=== PATIENT | female | born 1935 | race Hispanic/Latino ===

== ENCOUNTER 2016-06-25 13:43 | Outpatient (CLI) | payer MEDICARE ==
[2016-06-25] MEDS ORDERED: XYLOCAINE TOPICAL 4% TP ONE ×2 (14:38→14:54)
[2016-06-25] MEDS ORDERED: NACL 0.9% 500 ML IR ONE (16:13)
== END 2016-06-25 13:44 | disposition home or self-care (01) ==
LOC: WOUND 13:43
PROVIDERS: ATTEND Podiatrist
DX: L97.822 Non-pressure chronic ulcer of other part of left lower leg with fat layer exposed (principal); K21.9 Gastro-esophageal reflux disease without esophagitis; I10 Essential (primary) hypertension; Z86.73 Personal history of transient ischemic attack (TIA), and cerebral infarction without residual deficits; Z72.89 Other problems related to lifestyle
CPT/HCPCS: 11042; G0463

== ENCOUNTER 2016-07-02 12:58 | Outpatient (CLI) | payer MEDICARE ==
[2016-07-02] MEDS ORDERED: XYLOCAINE TOPICAL 2% TP ONE ×2 (13:03→17:02)
== END 2016-07-02 12:59 | disposition home or self-care (01) ==
LOC: WOUND 12:58
PROVIDERS: ATTEND Podiatrist
DX: L97.822 Non-pressure chronic ulcer of other part of left lower leg with fat layer exposed (principal); K21.9 Gastro-esophageal reflux disease without esophagitis; I10 Essential (primary) hypertension; Z86.73 Personal history of transient ischemic attack (TIA), and cerebral infarction without residual deficits; Z72.89 Other problems related to lifestyle

== ENCOUNTER 2016-07-09 07:53 | Outpatient (CLI) | payer MEDICARE | END 2016-07-09 07:54 | disposition home or self-care (01) | LOC: WOUND 07:53 | PROVIDERS: ATTEND Podiatrist | DX: L97.822 Non-pressure chronic ulcer of other part of left lower leg with fat layer exposed (principal); K21.9 Gastro-esophageal reflux disease without esophagitis; I10 Essential (primary) hypertension; Z86.73 Personal history of transient ischemic attack (TIA), and cerebral infarction without residual deficits; Z72.89 Other problems related to lifestyle | CPT/HCPCS: 99213; G0463 ==

== ENCOUNTER 2016-10-20 13:05 | Outpatient (CLI) | payer MEDICARE ==
--- NOTE | 2016-10-20 13:57 | Mammography Report ---
BILATERAL DIGITAL DIAGNOSTIC MAMMOGRAM with CAD and RIGHT BREAST ULTRASOUND: 10/20/16 CLINICAL: A right breast lump felt by her doctor. She does not feel a lump. COMPARISON:None available. FINDINGS: The breasts are almost entirely fatty.No mass, architectural distortion or suspicious calcifications . No mammographic abnormality at a right palpable marker at 6 o'clock. Bilateral benign vascular calcifications. Ultrasound of the right breast performed from 5 o'clock to 7 o'clock and demonstrated normal fibroglandular and fatty structures. No mass, cyst or shadowing. IMPRESSION: Negative mammogram and negative right breast ultrasound in the area where a lump was described. BI-RADS CATEGORY: 2 -- Benign RECOMMENDATION: Clinical follow-up of the palpable area and routine mammographic screening in one year. ACR BI-RADS MAMMOGRAPHIC CODES: 0 = Needs additional imaging evaluation; 1 = Negative; 2 = Benign; 3 = Probably benign; 4 = Suspicious; 5 = Malignant; 6 = Known biopsy-proven malignancy COMMENT: 1. Dense breast tissue, i.e., adenosis, fibrocystic changes, etc., may obscure an underlying neoplasm. 2. Approximately 10% of cancers are not detected with mammography. 3. A negative mammography report should not delay biopsy if a clinically suspicious mass is present. COMMENT: Patient follow-up letters are generated by our [employer] application.
== END 2016-10-20 13:06 | disposition home or self-care (01) ==
LOC: SPVWC 13:05
PROVIDERS: ATTEND Family Medicine
DX: N63 Unspecified lump in breast (principal); R92.1 Mammographic calcification found on diagnostic imaging of breast
CPT/HCPCS: 76642; G0204; 77066

== ENCOUNTER 2017-06-14 16:17 | Inpatient (IN) | payer MEDICARE ==
[2017-06-14 16:57] LABS: Basophils % (Auto) 0.3 % (0.0-1.8); Eosinophils % (Auto) 0.2 % (0.0-4.3); Hematocrit 40.2 % (30.3-42.9); Hemoglobin 13.6 gm/dl (10.1-14.3); Lymphocytes # (Auto) 0.5 K/mm3 (1.2-5.4); Lymphocytes % (Auto) 4.8 % (13.4-35.0); Mean Corpuscular HGB Conc 34 % (30-34); Mean Corpuscular Hemoglobin 30 pg (28-32); Mean Corpuscular Volume 88 fl (79-97); Monocytes # (Auto) 1.3 K/mm3 (0.0-0.8); Monocytes % (Auto) 11.8 % (0.0-7.3); Platelet Count 159 K/mm3 (140-440); Red Blood Count 4.59 M/mm3 (3.65-5.03)
[2017-06-14 17:07] LABS: Calcium 8.4 mg/dL (8.4-10.2)
[2017-06-14] MEDS ORDERED: NACL 0.9% 1000 ML 1,000 ML ONE (17:27)
[2017-06-14] MEDS ORDERED: NACL 0.9% 1000 ML 1,000 ML IV ONE ×2 (17:31→18:16)
[2017-06-14] MEDS ORDERED: GUAIFENESIN DM SYRUP PO ONE (18:19)
[2017-06-14 18:45] LABS: Bilirubin,Direct 0.6 mg/dL (0-0.2)
[2017-06-14 19:43] LABS: Bacteria,Urine 3+ /HPF (Negative); Bilirubin,Urine NEG (Negative); Blood,Urine MOD (Negative); Color,Urine Yellow (Yellow); Mucus,Urine FEW /HPF; Urobilinogen,Urine < 2.0 mg/dL (<2.0)
--- NOTE | 2017-06-14 20:21 | XRay Report ---
FINAL REPORT PROCEDURE: XR RIBS UNI W PA CHEST 3+V RT TECHNIQUE: RIGHT rib radiographs, 3 views of the ribs, including PA chest. HISTORY: rt lateral low rib pain at midaxillary line COMPARISON: No prior studies are available for comparison. FINDINGS: Heart: Normal. Mediastinum/Vessels: Normal. Lungs: There is diffuse prominence of interstitial markings. No confluent infiltrates or mass lesions are identified. Pleural space: Normal. Pneumothorax: None. Bony thorax/ribs: Ribs are intact without evidence of an acute fracture. Bones are osteopenic. IMPRESSION: No acute bony abnormality. Prominent interstitial markings most likely represent interstitial fibrosis versus interstitial edema.
--- NOTE | 2017-06-14 20:23 | XRay Report ---
FINAL REPORT PROCEDURE: XR FEMUR 2+V LT TECHNIQUE: LEFT femur radiographs, AP and lateral views. HISTORY: anterior mid quad pain COMPARISON: No prior studies are available for comparison. FINDINGS: Fracture (s) and/or Dislocation(s): None . Joint space(s): Knee prosthesis is identified with satisfactory alignment.. Soft tissues: Normal . Bone mineralization: Normal . Foreign bodies: None . IMPRESSION: No acute abnormality
[2017-06-14] MEDS ORDERED: LEVAQUIN 500MG/100ML 500 MG/100 ML BAG IV ONE (21:07)
[2017-06-14] MEDS ORDERED: BABY ASPIRIN PO ONE (21:09)
--- NOTE | 2017-06-14 21:09 | Emergency Department Report ---
HPI - General Chief Complaint: Syncope Time Seen by Provider: 06/14/17 17:22 - HPI HPI: The patient is a 82-year-old female who presents for evaluation of generalized weakness and shortness of breath. The patient reports 1 month of progressive generalized weakness and shortness of breath, dyspnea severe, exacerbated with walking or exertion, and approved with rest. She also reports a chronic cough and soreness of throat. The patient denies trauma to the chest, fever, chest pain, syncope, hemoptysis, unilateral leg swelling, recent immobilization, history of DVT or PE, hx of recent cancer. ED Past Medical Hx - Past Medical History Previous Medical History?: Yes Hx Hypertension: Yes Hx CVA: Yes (TIA) Additional medical history: high cholesterol. GERD - Surgical History Past Surgical History?: Yes Additional Surgical History: Left knee replacement - Social History Smoking Status: Never Smoker Substance Use Type: None ED Review of Systems ROS: Stated complaint: LBP Other details as noted in HPI Constitutional: denies: fever ENT: reports throat or neck pain Respiratory: reports cough, shortness of breath Cardiovascular: denies: chest pain Endocrine: denies unexplained weight loss or gain Gastrointestinal: denies: abdominal pain, nausea Genitourinary: denies: dysuria Musculoskeletal: denies: leg swelling Skin: denies: rash Neurological: denies: headache Hematological/Lymphatic: denies: easy bleeding or easy bruising Psych: denies sadness or hopelessness Physical Exam - Physical Exam Vital Signs: Vital Signs 06/14/17 06/14/17 06/14/17 16:23 16:25 16:30 Temperature 97.5 F L Pulse Rate 69 70 66 Respiratory 24 20 29 H Rate Blood Pressure 108/61 102/62 Blood Pressure [Right] O2 Sat by Pulse 100 98 Oximetry 06/14/17 06/14/17 06/14/17 17:00 17:02 17:30 Temperature 97.5 F L Pulse Rate 72 67 71 Respiratory 17 24 21 Rate Blood Pressure 102/62 77/59 Blood Pressure 102/62 [Right] O2 Sat by Pulse 95 96 99 Oximetry 06/14/17 06/14/17 18:00 18:30 Temperature Pulse Rate 74 72 Respiratory 19 18 Rate Blood Pressure 138/77 125/60 Blood Pressure [Right] O2 Sat by Pulse 98 97 Oximetry Physical Exam: General: well-nourished, well-developed, no acute distress Head: Normocephalic, atraumatic Eyes: normal sclera ENT: Mucous membranes are pale and dry Neck: trachea midline, neck supple, No neck stiffness, no cervical adenopathy Respiratory: Breath sounds equal bilaterally, no wheezing, rales, or rhonchi Cardio: S1 and S2 present, no murmurs, rubs, gallops, capillary refill is delayed Abdomen: Normoactive bowel sounds, soft abdomen, no rigidity, no guarding or rebound tenderness Chest WALL/Back: No tenderness to palpation of the chest wall, no CVA tenderness with percussion Musc: 1+ pitting edema of legs present Skin: No rash Neuro: no facial drooping, normal speech Psych: Normal affect ED Course Vital Signs 06/14/17 06/14/17 06/14/17 16:23 16:25 16:30 Temperature 97.5 F L Pulse Rate 69 70 66 Respiratory 24 20 29 H Rate Blood Pressure 108/61 102/62 Blood Pressure [Right] O2 Sat by Pulse 100 98 Oximetry 06/14/17 06/14/17 06/14/17 17:00 17:02 17:30 Temperature 97.5 F L Pulse Rate 72 67 71 Respiratory 17 24 21 Rate Blood Pressure 102/62 77/59 Blood Pressure 102/62 [Right] O2 Sat by Pulse 95 96 99 Oximetry 06/14/17 06/14/17 18:00 18:30 Temperature Pulse Rate 74 72 Respiratory 19 18 Rate Blood Pressure 138/77 125/60 Blood Pressure [Right] O2 Sat by Pulse 98 97 Oximetry ED Medical Decision Making - Lab Data Result diagrams: 06/14/17 16:39 06/14/17 16:39 - Medical Decision Making The patient was seen and examined by myself. The patient is placed on a security monitor and continuous pulse ox. On initial evaluation, the patient was found to be in no distress, with low blood pressure 70/50s, and oxygen desaturation with ambulation. The patient is given fluid bolus for treatment of her hypotension and dehydration. Evaluation orders were placed. Lab results revealed elevated BUN of 30, elevated creatinine of 2.0, elevated BNP of 1079, and elevated anion gap with low bicarbonate. Chest x-ray exhibits interstitial edema, in conjunction with elevated BNP, suggestive of angina and congestive heart failure. The patient is given Lasix for treatment of suspected undiagnosed CHF. The patient was ambulated with a pulse oximetry again and she again experience hypoxia. The on-call hospitalist service was contacted. They agreed to admit the patient for further treatment and close monitoring. The ED admit order was placed. The patient was admitted in guarded condition. Critical care attestation.: If time is entered above; I have spent that time in minutes in the direct care of this critically ill patient, excluding procedure time. ED Disposition Clinical Impression: Dehydration, severe, Acute UTI (urinary tract infection), SAMANTHA (acute kidney injury), Hypoxia, Dyspnea on exertion, New onset of congestive heart failure Disposition: OP ADMIT IP TO THIS HOSP Is pt being admited?: Yes Does the pt Need Aspirin: Yes Condition: Serious Time of Disposition: 20:08
[2017-06-14] MEDS ORDERED: LASIX IV ONE (22:00)
[2017-06-14] MEDS ORDERED: ROCEPHIN/NS 1 GM/50 ML 1 GM/50 ML BAG IV ONE (22:33)
[2017-06-14] MEDS ORDERED: ZOFRAN IV PRN (22:45)
[2017-06-14] MEDS ORDERED: TYLENOL PO PRN (22:45)
[2017-06-14] MEDS ORDERED: PROVENTIL IH PRN (22:45)
[2017-06-14] MEDS ORDERED: cefTRIAXone 1 GM in NACL 0.9% 20 ML IV ONE (22:45)
[2017-06-14] MEDS ORDERED: SODIUM CHLORIDE FLUSH SYRINGE 10 ML IV PRN (22:45)
--- NOTE | 2017-06-14 22:48 | History and Physical Report ---
History of Present Illness Date of examination: 06/14/17 History of present illness: This is a 82-year-old woman history of hypertension, TIA, hyperlipidemia, GERD was sent from her primary care physician office closer blood pressure was 79 systolically. Patient felt weak and lightheaded. Family member at bedside state that on Tuesday she had a syncopal episode, patient stated that she woke up and found herself on the floor. Is unclear how long she was on the floor for. She states that she has been short of breath 4 years, she said several workup all of which has been inconclusive. She was placed on Lasix, she took herself off Lasix over the last 6 months secondary to frequent urination. She saw a orthodontic technician assistant, he told her to lose weight, over the last 1 week she states she had decreased oral intake because she was trying to lose weight, she lost 10 pounds over the last 1 week. Patient was very short of breath in the emergency room, hypoxic. She was given IV fluids and then IV Lasix Review of systems Constitutional: no weight loss, chills Ears, eyes, nose, mouth and throat: no nasal congestion, no nasal discharge, no sinus pressure, no vision change, no red eye. Neck: No neck pain or rigidity. Cardiovascular: no chest pain, palpitations Respiratory: No shortness of breath Gastrointestinal: no abdominal pain, hematochezia Genitourinary : no dysuria, frequency , no hematuria Musculoskeletal: no joint swelling or muscle ache Integumentary: no rash, no pruritis Neurological: no parathesias, no numbness, no focal weakness Endocrine: no cold or heat intolerance, no polyuria or polydipsia Hematologic/Lymphatic: no easy bruising, no easy bleeding, no gland swelling Allergic/Immunologic: no urticaria, no angioedema. PAST MEDICAL HISTORY: hypertension, TIA, hyperlipidemia, GERD PAST SURGICAL HISTORY: Left knee SOCIAL HISTORY: Denies alcohol, tobacco, drugs FAMILY HISTORY: Hypertension Medications and Allergies Allergies Allergy/AdvReac Type Severity Reaction Status Date / Time No Known Allergies Allergy Unverified 06/25/16 14:53 Active Meds: Active Medications Ceftriaxone Sodium 1 gm/ (Sodium Chloride) 20 mls @ 2 mls/min IV ONCE.ED ONE Stop: 06/14/17 22:54 Exam - Physical Exam Narrative exam: Gen. appearance: Patient lying in bed, no apparent distress HEENT: Normocephalic, atraumatic, pupils equally round and reactive to light, extraocular movement intact, and no sclericterus,. No JVD or thyromegaly or nodule,neck supple, no carotid bruit ,mucous membranes moist, no exudate or erythema Heart: S1, S2, regular rate and rhythm Lungs: Decreased breath sound at bases bilaterally, breathing comfortable Abdomen: Positive bowel sounds, nontender, nondistended, no organomegaly Extremity: No edema, cyanosis, clubbing Skin: No rash, nodules, warm, dry Neuro: Oriented 3, cranial nerves II-12 intact, speech is fluent, motor and sensory intact - Constitutional Vitals: Temp Pulse Resp BP Pulse Ox 98 F 68 18 124/70 100 06/14/17 22:34 06/14/17 22:34 06/14/17 22:34 06/14/17 22:34 06/14/17 22:34 Results - Labs CBC & Chem 7: 06/14/17 16:39 06/14/17 16:39 Labs: Abnormal lab results 06/14/17 06/14/17 06/14/17 Range/Units 16:39 16:39 16:39 Lymph % (Auto) 4.8 L (13.4-35.0) % [place] % (Auto) 11.8 H (0.0-7.3) % Lymph # 0.5 L (1.2-5.4) K/mm3 [place] # 1.3 H (0.0-0.8) K/mm3 Seg Neutrophils % 82.9 H (40.0-70.0) % Seg Neutrophils # 8.8 H (1.8-7.7) K/mm3 POC ABG pCO2 (35-45) POC ABG pO2 (80-105) Sodium 129 L (137-145) mmol/L Potassium 3.1 L (3.6-5.0) mmol/L Chloride 94.2 L (98-107) mmol/L Carbon Dioxide 16 L (22-30) mmol/L BUN 30 H (7-17) mg/dL Creatinine 2.0 H (0.7-1.2) mg/dL Glucose 143 H (65-100) mg/dL Direct Bilirubin (0-0.2) mg/dL Alkaline Phosphatase (35-129) units/L NT-Pro-B Natriuret Pep 1079 H (0-900) pg/mL Albumin (3.9-5) g/dL Urine WBC (Auto) (0.0-6.0) /HPF 06/14/17 06/14/17 06/14/17 Range/Units 16:39 19:13 22:18 Lymph % (Auto) (13.4-35.0) % [place] % (Auto) (0.0-7.3) % Lymph # (1.2-5.4) K/mm3 [place] # (0.0-0.8) K/mm3 Seg Neutrophils % (40.0-70.0) % Seg Neutrophils # (1.8-7.7) K/mm3 POC ABG pCO2 26.4 L (35-45) POC ABG pO2 224 H (80-105) Sodium (137-145) mmol/L Potassium (3.6-5.0) mmol/L Chloride (98-107) mmol/L Carbon Dioxide (22-30) mmol/L BUN (7-17) mg/dL Creatinine (0.7-1.2) mg/dL Glucose (65-100) mg/dL Direct Bilirubin 0.6 H (0-0.2) mg/dL Alkaline Phosphatase 142 H (35-129) units/L NT-Pro-B Natriuret Pep (0-900) pg/mL Albumin 3.0 L (3.9-5) g/dL Urine WBC (Auto) 157.0 H (0.0-6.0) /HPF - Imaging and Cardiology EKG: image reviewed Chest x-ray: image reviewed Assessment and Plan Assessment Shortness of breath probably secondary to CHF Acute renal failure secondary to the hydration Syncope UTI Hyperlipidemia GERD Plan Admit to medicine Su and Marilou for now, check her consent, consult cardiology d-dimer ordered, it was elevated will check V/Q Family stated that the patient had a recent echo done Check ultrasound of the kidneys, start IV Rocephin, follow cultures DVT prophylaxis
[2017-06-14 23:51] LABS: Creatine Kinase MB 1.7 ng/mL (0.0-4.0)
[2017-06-15 05:24] LABS: BUN/Creatinine Ratio 16; Blood Urea Nitrogen 26 mg/dL (7-17); Calcium 7.9 mg/dL (8.4-10.2); Hemolysis Index 33
[2017-06-15] MEDS: SODIUM CHLORIDE FLUSH SYRINGE 10 ML IV SCH ×2 (10:30→22:37)
[2017-06-15 11:20] LABS: Creatine Kinase MB 1.5 ng/mL (0.0-4.0)
[2017-06-15] MEDS ORDERED: PNEUMOVAX 23 IM ONE (12:00)
[2017-06-15] MEDS: LOVENOX SUB-Q SCH (12:30)
--- NOTE | 2017-06-15 12:39 | Nuclear Medicine Report ---
LUNG SCAN, VENTILATION AND PERFUSION: History: Evaluate for pulmonary embolus, shortness of breath. Technique: 5mci of Tc99m MAA was infused for the perfusion images. 15mci XE 133 gas was inhaled for the ventilatory images. Comment: This examination is just presented to me for interpretation. Findings: Inhalation of Xenon gas demonstrates a normal distribution of the activity throughout both lungs. The wash out phases show no focal retention of activity. After injection of Technetium 99m macroaggregated albumin gamma camera imaging of the lungs in multiple projections demonstrates normal pulmonary contours with a homogeneous distribution of activity. No focal areas of perfusion deficiency are identified. IMPRESSION: Low probability for pulmonary embolus.
--- NOTE | 2017-06-15 13:00 | Consultation ---
History of Present Illness Consult date: 06/15/17 Consult reason: shortness of breath History of present illness: This is an 82yr old woman who reports a history of GERD and chronic shortness of breath. On yesterday, patient was sent to the emergency department from her GI office with hypotension, admitted with dehydration. Patient reports feeling fatigue for several weeks after a recent decrease of oral intake secondary to difficulty swallowing causing her to choke. In addition , patient states she is trying to loose weight. It's also reported the patient had a syncopal episode a week ago, that the patient woke up and found herself on the floor. The patient did not seek medical attention at that time. Most recent cardiac evaluation with an echocardiogram demonstrates a normal left ventricular systolic function, ejection fraction 55-60%. Medications and Allergies Allergies Allergy/AdvReac Type Severity Reaction Status Date / Time No Known Allergies Allergy Unverified 06/25/16 14:53 Home Medications Medication Instructions Recorded Confirmed Last Taken Type Carvedilol [Coreg] 6.25 mg PO BID 06/15/17 06/15/[address] [Voltaren Dr] 75 mg PO DAILY 06/15/17 06/15/17 Unknown History Furosemide [Lasix] 20 mg PO QDAY 06/15/17 06/15/17 Unknown History Ibuprofen 800 mg PO PRN PRN 06/15/17 06/15/17 Unknown History Losartan [Cozaar] 100 mg PO QDAY 06/15/17 06/15/17 Unknown History Mirabegron [Myrbetriq] 25 mg PO QDAY 06/15/17 06/15/17 Unknown History Omeprazole 40 mg PO DAILY 06/15/17 06/15/17 Unknown History Phentermine HCl 37.5 mg PO QAM 06/15/17 06/15/17 Unknown History Pravastatin [Pravachol] 40 mg PO QHS 06/15/17 06/15/17 Unknown History Active Meds: Active Medications Acetaminophen (Tylenol) 650 mg PO Q4H PRN PRN Reason: Pain MILD(1-3)/Fever >100.5/CEE Albuterol (Proventil) 2.5 mg IH Q3HRT PRN PRN Reason: Shortness Of Breath Enoxaparin Sodium (Lovenox) 30 mg SUB-Q QDAY AYALA Ondansetron HCl (Zofran) 4 mg IV Q8H PRN PRN Reason: Nausea And Vomiting Sodium Chloride (Sodium Chloride Flush Syringe 10 Ml) 10 ml IV BID AYALA Sodium Chloride (Sodium Chloride Flush Syringe 10 Ml) 10 ml IV PRN PRN PRN Reason: LINE FLUSH Physical Examination Vital Signs Temp Pulse Resp BP Pulse Ox 97.5 F L 69 24 108/61 100 06/14/17 16:23 06/14/17 16:23 06/14/17 16:23 06/14/17 16:23 06/14/17 16:23 Results 06/14/17 16:39 06/14/17 22:57 Cardiac Enzymes 06/14/17 06/14/17 06/15/17 Range/Units 16:39 23:14 09:44 AST 30 (5-40) units/L CK-MB (CK-2) 1.7 1.5 (0.0-4.0) ng/mL CBC 06/14/17 Range/Units 16:39 WBC 10.6 (4.5-11.0) K/mm3 RBC 4.59 (3.65-5.03) M/mm3 Hgb 13.6 (10.1-14.3) gm/dl Hct 40.2 (30.3-42.9) % Plt Count 159 (140-440) K/mm3 Lymph # 0.5 L (1.2-5.4) K/mm3 [place] # 1.3 H (0.0-0.8) K/mm3 Eos # 0.0 (0.0-0.4) K/mm3 Baso # 0.0 (0.0-0.1) K/mm3 Comprehensive Metabolic Panel 06/14/17 06/14/17 06/14/17 Range/Units 16:39 16:39 22:57 Sodium 129 L 139 D (137-145) mmol/L Potassium 3.1 L 3.7 (3.6-5.0) mmol/L Chloride 94.2 L 103.8 (98-107) mmol/L Carbon Dioxide 16 L 12 L (22-30) mmol/L BUN 30 H 26 H (7-17) mg/dL Creatinine 2.0 H 1.6 H (0.7-1.2) mg/dL Glucose 143 H 120 H (65-100) mg/dL Calcium 8.4 7.9 L (8.4-10.2) mg/dL Direct Bilirubin 0.6 H (0-0.2) mg/dL Indirect Bilirubin 0.4 mg/dL AST 30 (5-40) units/L ALT 32 (7-56) units/L Alkaline Phosphatase 142 H (35-129) units/L Total Protein 6.5 (6.3-8.2) g/dL Albumin 3.0 L (3.9-5) g/dL Assessment and Plan Dehydration Shortness of breath GERD Normal LVEF 55-60% on echo 03/2017.
[2017-06-15 13:42] LABS: Hematocrit 42.2 % (30.3-42.9); Hemoglobin 14.2 gm/dl (10.1-14.3); Mean Corpuscular HGB Conc 34 % (30-34); Mean Corpuscular Hemoglobin 29 pg (28-32); Mean Corpuscular Volume 87 fl (79-97); Platelet Count 155 K/mm3 (140-440); Red Blood Count 4.86 M/mm3 (3.65-5.03)
[2017-06-15 14:48] LABS: Eosinophils % (Manual) 0 % (0.0-4.3); RBC Morphology Normal; Total Cells Counted 100
[2017-06-15 14:49] LABS: Dohle Bodies Rare; Large Platelets Rare; Platelet Estimate Cons; Toxic Vacuolation Few
--- NOTE | 2017-06-15 17:46 | Progress Note ---
Assessment and Plan Assessment and plan: --Syncope; probably secondary to autonomic imbalance, dehydration Fall precautions, IV fluids, syncope workup --Acute kidney injury; vasomotor nephropathy, gentle hydration, closely monitor renal function Avoid nephrotoxic medication, consider nephrology evaluation as needed, --Elevated d-dimers VQ scan neg for PE,Check Lower extremity venous doppler to rule out DVT --Atypical chronic chest pain; probably noncardiac, however patient never had cardiac workup Cardiology following, planning ischemia workup once a function improves --Gastroesophageal reflux disease; continue Protonix --DVT prophylaxis; Lovenox, renal dose --Full CODE STATUS; Plan of care discussed with the patient and the daughter at bedside Cardiology evaluation and recommendations noted and appreciated History Interval history: Patient seen and examined medical records reviewed Complains of mild shortness of breath, daughter reports that patient is noncompliant with medications Patient denies chest pain and no nausea or vomiting Alert awake oriented 3 Mild distress Vital signs reviewed Hospitalist Physical - Constitutional Vitals: Temp Pulse Resp BP Pulse Ox 98.7 F 75 20 121/55 97 06/15/17 16:44 06/15/17 16:44 06/15/17 16:44 06/15/17 16:44 06/15/17 16:44 General appearance: Present: mild distress, well-nourished, obese - EENT Eyes: Present: PERRL, EOM intact - Neck Neck: Present: supple, normal ROM - Respiratory Respiratory effort: normal Respiratory: bilateral: diminished, rales, negative: rhonchi, wheezing - Cardiovascular Rhythm: regular Heart Sounds: Present: S1 & S2 - Extremities Extremities: no ischemia, No edema - Abdominal General gastrointestinal: soft, non-tender, non-distended, normal bowel sounds - Integumentary Integumentary: Present: clear, warm - Psychiatric Psychiatric: appropriate mood/affect, cooperative - Neurologic Neurologic: moves all extremities Results - Labs CBC & Chem 7: 06/15/17 13:33 06/14/17 22:57 Labs: Laboratory Last Values WBC 11.9 K/mm3 (4.5-11.0) H 06/15/17 13:33 RBC 4.86 M/mm3 (3.65-5.03) 06/15/17 13:33 Hgb 14.2 gm/dl (10.1-14.3) 06/15/17 13:33 Hct 42.2 % (30.3-42.9) 06/15/17 13:33 MCV 87 fl (79-97) 06/15/17 13:33 MCH 29 pg (28-32) 06/15/17 13:33 MCHC 34 % (30-34) 06/15/17 13:33 RDW 15.0 % (13.2-15.2) 06/15/17 13:33 Plt Count 155 K/mm3 (140-440) 06/15/17 13:33 Lymph % (Auto) 4.8 % (13.4-35.0) L 06/14/17 16:39 [place] % (Auto) 11.8 % (0.0-7.3) H 06/14/17 16:39 Eos % (Auto) 0.2 % (0.0-4.3) 06/14/17 16:39 Baso % (Auto) 0.3 % (0.0-1.8) 06/14/17 16:39 Lymph # 0.5 K/mm3 (1.2-5.4) L 06/14/17 16:39 [place] # 1.3 K/mm3 (0.0-0.8) H 06/14/17 16:39 Eos # 0.0 K/mm3 (0.0-0.4) 06/14/17 16:39 Baso # 0.0 K/mm3 (0.0-0.1) 06/14/17 16:39 Add Manual Diff Complete 06/15/17 13:33 Total Counted 100 06/15/17 13:33 Seg Neutrophils % 82.9 % (40.0-70.0) H 06/14/17 16:39 Seg Neuts % (Manual) 95.0 % (40.0-70.0) H 06/15/17 13:33 Band Neutrophils % 0 % 06/15/17 13:33 Lymphocytes % (Manual) 3.0 % (13.4-35.0) L 06/15/17 13:33 Reactive Lymphs % (Man) 0 % 06/15/17 13:33 Monocytes % (Manual) 1.0 % (0.0-7.3) 06/15/17 13:33 Eosinophils % (Manual) 0 % (0.0-4.3) 06/15/17 13:33 Basophils % (Manual) 1.0 % (0.0-1.8) 06/15/17 13:33 Metamyelocytes % 0 % 06/15/17 13:33 Myelocytes % 0 % 06/15/17 13:33 Promyelocytes % 0 % 06/15/17 13:33 Blast Cells % 0 % 06/15/17 13:33 Nucleated RBC % Not Reportable 06/15/17 13:33 Seg Neutrophils # 8.8 K/mm3 (1.8-7.7) H 06/14/17 16:39 Seg Neutrophils # Man 11.3 K/mm3 (1.8-7.7) H 06/15/17 13:33 Band Neutrophils # 0.0 K/mm3 06/15/17 13:33 Lymphocytes # (Manual) 0.4 K/mm3 (1.2-5.4) L 06/15/17 13:33 Abs React Lymphs (Man) 0.0 K/mm3 06/15/17 13:33 Monocytes # (Manual) 0.1 K/mm3 (0.0-0.8) 06/15/17 13:33 Eosinophils # (Manual) 0.0 K/mm3 (0.0-0.4) 06/15/17 13:33 Basophils # (Manual) 0.1 K/mm3 (0.0-0.1) 06/15/17 13:33 Metamyelocytes # 0.0 K/mm3 06/15/17 13:33 Myelocytes # 0.0 K/mm3 06/15/17 13:33 Promyelocytes # 0.0 K/mm3 06/15/17 13:33 Blast Cells # 0.0 K/mm3 06/15/17 13:33 WBC Morphology Not Reportable 06/15/17 13:33 Hypersegmented Neuts Not Reportable 06/15/17 13:33 Hyposegmented Neuts Not Reportable 06/15/17 13:33 Hypogranular Neuts Not Reportable 06/15/17 13:33 Smudge Cells Not Reportable 06/15/17 13:33 Toxic Granulation Not Reportable 06/15/17 13:33 Toxic Vacuolation Few 06/15/17 13:33 Dohle Bodies Rare 06/15/17 13:33 Pelger-Huet Anomaly Not Reportable 06/15/17 13:33 Aditi Rods Not Reportable 06/15/17 13:33 Platelet Estimate Cons 06/15/17 13:33 Clumped Platelets Not Reportable 06/15/17 13:33 Plt Clumps, EDTA Not Reportable 06/15/17 13:33 Large Platelets Rare 06/15/17 13:33 Giant Platelets Not Reportable 06/15/17 13:33 Platelet Satelliting Not Reportable 06/15/17 13:33 Plt Morphology Comment Not Reportable 06/15/17 13:33 RBC Morphology Normal 06/15/17 13:33 Dimorphic RBCs Not Reportable 06/15/17 13:33 Polychromasia Not Reportable 06/15/17 13:33 Hypochromasia Not Reportable 06/15/17 13:33 Poikilocytosis Not Reportable 06/15/17 13:33 Anisocytosis Not Reportable 06/15/17 13:33 Microcytosis Not Reportable 06/15/17 13:33 Macrocytosis Not Reportable 06/15/17 13:33 Spherocytes Not Reportable 06/15/17 13:33 Pappenheimer Bodies Not Reportable 06/15/17 13:33 Sickle Cells Not Reportable 06/15/17 13:33 Target Cells Not Reportable 06/15/17 13:33 Tear Drop Cells Not Reportable 06/15/17 13:33 Ovalocytes Not Reportable 06/15/17 13:33 Helmet Cells Not Reportable 06/15/17 13:33 Guerrero-[place] Bodies Not Reportable 06/15/17 13:33 [place] Rings Not Reportable 06/15/17 13:33 Sonya Cells Not Reportable 06/15/17 13:33 Bite Cells Not Reportable 06/15/17 13:33 Crenated Cell Not Reportable 06/15/17 13:33 Elliptocytes Not Reportable 06/15/17 13:33 Acanthocytes (Spur) Not Reportable 06/15/17 13:33 Rouleaux Not Reportable 06/15/17 13:33 Hemoglobin C Crystals Not Reportable 06/15/17 13:33 Schistocytes Not Reportable 06/15/17 13:33 Malaria parasites Not Reportable 06/15/17 13:33 [place] Bodies Not Reportable 06/15/17 13:33 Hem Pathologist Commnt No 06/15/17 13:33 D-Dimer 2195.21 ng/mlDDU (0-234) H 06/15/17 00:09 POC ABG pH 7.409 (7.35-7.45) 06/14/17 22:18 POC ABG pCO2 26.4 (35-45) L 06/14/17 22:18 POC ABG pO2 224 (80-105) H 06/14/17 22:18 POC ABG HCO3 16.7 06/14/17 22:18 POC ABG Total CO2 17 06/14/17 22:18 POC ABG O2 Sat 100 06/14/17 22:18 POC ABG Base Excess -8 06/14/17 22:18 FiO2 100 % 06/14/17 22:18 Sodium 139 mmol/L (137-145) D 06/14/17 22:57 Potassium 3.7 mmol/L (3.6-5.0) 06/14/17 22:57 Chloride 103.8 mmol/L (98-107) 06/14/17 22:57 Carbon Dioxide 12 mmol/L (22-30) L 06/14/17 22:57 Anion Gap 27 mmol/L 06/14/17 22:57 BUN 26 mg/dL (7-17) H 06/14/17 22:57 Creatinine 1.6 mg/dL (0.7-1.2) H 06/14/17 22:57 Estimated GFR 31 ml/min 06/14/17 22:57 BUN/Creatinine Ratio 16 % 06/14/17 22:57 Glucose 120 mg/dL (65-100) H 06/14/17 22:57 Lactic Acid 1.20 mmol/L (0.7-2.0) 06/14/17 18:41 Calcium 7.9 mg/dL (8.4-10.2) L 06/14/17 22:57 Total Bilirubin 1.00 mg/dL (0.1-1.2) 06/14/17 16:39 Direct Bilirubin 0.6 mg/dL (0-0.2) H 06/14/17 16:39 Indirect Bilirubin 0.4 mg/dL 06/14/17 16:39 AST 30 units/L (5-40) 06/14/17 16:39 ALT 32 units/L (7-56) 06/14/17 16:39 Alkaline Phosphatase 142 units/L (35-129) H 06/14/17 16:39 Total Creatine Kinase 57 units/L (30-135) 06/15/17 09:44 CK-MB (CK-2) 1.5 ng/mL (0.0-4.0) 06/15/17 09:44 CK-MB (CK-2) Rel Index 2.6 (0-4) 06/15/17 09:44 Troponin T 0.013 ng/mL (0.00-0.029) 06/15/17 09:44 NT-Pro-B Natriuret Pep 1079 pg/mL (0-900) H 06/14/17 16:39 Total Protein 6.5 g/dL (6.3-8.2) 06/14/17 16:39 Albumin 3.0 g/dL (3.9-5) L 06/14/17 16:39 Albumin/Globulin Ratio 0.9 % 06/14/17 16:39 Lipase 18 units/L (13-60) 06/14/17 16:39 Urine Color Yellow (Yellow) 06/14/17 19:13 Urine Turbidity Clear (Clear) 06/14/17 19:13 Urine pH 6.0 (5.0-7.0) 06/14/17 19:13 Ur Specific [place] 1.003 (1.003-1.030) 06/14/17 19:13 Urine Protein 30 mg/dl mg/dL (Negative) 06/14/17 19:13 Urine Glucose (UA) Neg mg/dL (Negative) 06/14/17 19:13 Urine Ketones Tr mg/dL (Negative) 06/14/17 19:13 Urine Blood Mod (Negative) 06/14/17 19:13 Urine Nitrite Pos (Negative) 06/14/17 19:13 Urine Bilirubin Neg (Negative) 06/14/17 19:13 Urine Urobilinogen < 2.0 mg/dL (<2.0) 06/14/17 19:13 Ur Leukocyte Esterase Lg (Negative) 06/14/17 19:13 Urine WBC (Auto) 157.0 /HPF (0.0-6.0) H 06/14/17 19:13 Urine RBC (Auto) 14.0 /HPF (0.0-6.0) 06/14/17 19:13 U Epithel Cells (Auto) 7.0 /HPF (0-13.0) 06/14/17 19:13 Urine Bacteria (Auto) 3+ /HPF (Negative) 06/14/17 19:13 Urine WBC Clumps 3+ /HPF 06/14/17 19:13 Urine Mucus Few /HPF 06/14/17 19:13
[2017-06-15] MEDS: COREG PO SCH (22:00)
[2017-06-15] MEDS: PRAVACHOL PO SCH (22:37)
[2017-06-15] MEDS: PROVENTIL IH SCH (23:54)
[2017-06-16] MEDS: PROVENTIL IH SCH (08:00)
[2017-06-16] MEDS ORDERED: NON-FORMULARY (Losartan [Cozaar] 100 MG) PO SCH (10:00)
[2017-06-16] MEDS: COREG PO SCH ×2 (10:22→22:11)
[2017-06-16] MEDS: COZAAR PO SCH (10:22)
[2017-06-16] MEDS: LOVENOX SUB-Q SCH (10:24)
[2017-06-16] MEDS: LASIX PO SCH (10:24)
[2017-06-16] MEDS: SODIUM CHLORIDE FLUSH SYRINGE 10 ML IV SCH ×2 (10:26→22:27)
--- NOTE | 2017-06-16 10:33 | Progress Note ---
Assessment and Plan Syncope likely secondary to dehydration and hypotension Acute renal failure Chronic worsening shortness of breath Normal LVEF by echo 03/2017 GERD Patient has chronic retrosternal chest pain that she attributes to GERD ECG is showing no ischemic findings. Troponin are negative and BNP mildly elevated in the setting of renal failure Recommendations: Daily labs. IV hydration. LHC and RHC tomorrow morning if renal function normalizes. Subjective Date of service: 06/16/17 Interval history: Patient has no cardiac complaints. No distress noted. Objective Vital Signs Temp Pulse Pulse Pulse Resp Resp Resp 06/16/17 09:26 74 18 06/16/17 09:24 18 06/16/17 09:23 06/16/17 08:13 58 L 18 06/16/17 08:02 06/16/17 08:00 67 20 06/16/17 05:28 71 18 06/16/17 03:00 89 06/15/17 21:10 18 06/15/17 19:47 99.9 F H 90 20 06/15/17 19:18 82 06/15/17 18:32 82 26 H 06/15/17 18:29 06/15/17 18:20 88 24 06/15/17 18:10 06/15/17 17:50 20 06/15/17 16:44 98.7 F 75 20 06/15/17 15:40 06/15/17 15:30 06/15/17 15:00 06/15/17 14:30 06/15/17 14:00 06/15/17 13:30 06/15/17 13:00 06/15/17 12:30 06/15/17 12:00 06/15/17 11:46 06/15/17 11:00 76 25 H BP Pulse Ox 06/16/17 09:26 97 06/16/17 09:24 06/16/17 09:23 107/55 06/16/17 08:13 06/16/17 08:02 96 06/16/17 08:00 06/16/17 05:28 108/58 98 06/16/17 03:00 06/15/17 21:10 06/15/17 19:47 103/52 93 06/15/17 19:18 06/15/17 18:32 06/15/17 18:29 96 06/15/17 18:20 06/15/17 18:10 96 06/15/17 17:50 06/15/17 16:44 121/55 97 06/15/17 15:40 112/61 95 06/15/17 15:30 112/61 94 06/15/17 15:00 116/60 92 06/15/17 14:30 116/60 94 06/15/17 14:00 136/64 95 06/15/17 13:30 136/64 96 06/15/17 13:00 137/62 93 06/15/17 12:30 128/70 95 06/15/17 12:00 117/88 96 06/15/17 11:46 110/47 96 06/15/17 11:00 110/47 93 - Physical Examination General: No Apparent Distress HEENT: Positive: PERRL Cardiac: Positive: Reg Rate and Rhythm Lungs: Positive: Decreased Breath Sounds Neuro: Positive: Grossly Intact Extremities: Absent: edema - Labs and Meds Cardiac Enzymes 06/15/17 Range/Units 09:44 CK-MB (CK-2) 1.5 (0.0-4.0) ng/mL CBC 06/15/17 Range/Units 13:33 WBC 11.9 H (4.5-11.0) K/mm3 RBC 4.86 (3.65-5.03) M/mm3 Hgb 14.2 (10.1-14.3) gm/dl Hct 42.2 (30.3-42.9) % Plt Count 155 (140-440) K/mm3 - Imaging and Cardiology EKG: image reviewed
[2017-06-16 11:47] LABS: Calcium 8.4 mg/dL (8.4-10.2)
--- NOTE | 2017-06-16 11:58 | Progress Note ---
Assessment and Plan Assessment and plan: --Atypical chronic chest pain; probably noncardiac, however patient never had cardiac workup Cardiology following, planning ischemia workup once a function improves Possible heart cath tomorrow --Allergic rash; unknown etiology No shortness of breath, mild redness on the skin and itching IV Solu-Medrol, Benadryl as needed, and local cream DC albuterol --Syncope; probably secondary to autonomic imbalance, dehydration Fall precautions, IV fluids, syncope workup --Acute kidney injury; vasomotor nephropathy, gentle hydration, closely monitor renal function Avoid nephrotoxic medication, consider nephrology evaluation as needed, --Elevated d-dimers VQ scan neg for PE,Check Lower extremity venous doppler to rule out DVT --Gastroesophageal reflux disease; continue Protonix --DVT prophylaxis; Lovenox, renal dose --Full CODE STATUS; Plan of care discussed with the patient and the daughter at bedside Cardiology evaluation and recommendations noted and appreciated History Interval history: Patient feels better complaints of some allergic rash and itching Patient's current medications reviewed Patient feels probably her breathing treatment must of course that Will DC albuterol Denies chest pain or shortness of breath Vital signs reviewed Hospitalist Physical - Constitutional Vitals: Temp Pulse Resp BP Pulse Ox 99.9 F H 74 18 107/55 97 06/15/17 19:47 06/16/17 09:26 06/16/17 09:26 06/16/17 09:23 06/16/17 09:26 General appearance: Present: mild distress, well-nourished, obese - EENT Eyes: Present: PERRL, EOM intact - Neck Neck: Present: supple, normal ROM - Respiratory Respiratory effort: normal Respiratory: bilateral: diminished, negative: rales, rhonchi, wheezing - Cardiovascular Rhythm: regular Heart Sounds: Present: S1 & S2 - Extremities Extremities: no ischemia, No edema - Abdominal General gastrointestinal: soft, non-tender, non-distended, normal bowel sounds - Integumentary Integumentary: Present: rash (mild erythema) - Psychiatric Psychiatric: appropriate mood/affect, cooperative - Neurologic Neurologic: CNII-XII intact, moves all extremities Results - Labs CBC & Chem 7: 06/15/17 13:33 06/16/17 10:20 Labs: Laboratory Last Values WBC 11.9 K/mm3 (4.5-11.0) H 06/15/17 13:33 RBC 4.86 M/mm3 (3.65-5.03) 06/15/17 13:33 Hgb 14.2 gm/dl (10.1-14.3) 06/15/17 13:33 Hct 42.2 % (30.3-42.9) 06/15/17 13:33 MCV 87 fl (79-97) 06/15/17 13:33 MCH 29 pg (28-32) 06/15/17 13:33 MCHC 34 % (30-34) 06/15/17 13:33 RDW 15.0 % (13.2-15.2) 06/15/17 13:33 Plt Count 155 K/mm3 (140-440) 06/15/17 13:33 Lymph % (Auto) 4.8 % (13.4-35.0) L 06/14/17 16:39 [place] % (Auto) 11.8 % (0.0-7.3) H 06/14/17 16:39 Eos % (Auto) 0.2 % (0.0-4.3) 06/14/17 16:39 Baso % (Auto) 0.3 % (0.0-1.8) 06/14/17 16:39 Lymph # 0.5 K/mm3 (1.2-5.4) L 06/14/17 16:39 [place] # 1.3 K/mm3 (0.0-0.8) H 06/14/17 16:39 Eos # 0.0 K/mm3 (0.0-0.4) 06/14/17 16:39 Baso # 0.0 K/mm3 (0.0-0.1) 06/14/17 16:39 Add Manual Diff Complete 06/15/17 13:33 Total Counted 100 06/15/17 13:33 Seg Neutrophils % 82.9 % (40.0-70.0) H 06/14/17 16:39 Seg Neuts % (Manual) 95.0 % (40.0-70.0) H 06/15/17 13:33 Band Neutrophils % 0 % 06/15/17 13:33 Lymphocytes % (Manual) 3.0 % (13.4-35.0) L 06/15/17 13:33 Reactive Lymphs % (Man) 0 % 06/15/17 13:33 Monocytes % (Manual) 1.0 % (0.0-7.3) 06/15/17 13:33 Eosinophils % (Manual) 0 % (0.0-4.3) 06/15/17 13:33 Basophils % (Manual) 1.0 % (0.0-1.8) 06/15/17 13:33 Metamyelocytes % 0 % 06/15/17 13:33 Myelocytes % 0 % 06/15/17 13:33 Promyelocytes % 0 % 06/15/17 13:33 Blast Cells % 0 % 06/15/17 13:33 Nucleated RBC % Not Reportable 06/15/17 13:33 Seg Neutrophils # 8.8 K/mm3 (1.8-7.7) H 06/14/17 16:39 Seg Neutrophils # Man 11.3 K/mm3 (1.8-7.7) H 06/15/17 13:33 Band Neutrophils # 0.0 K/mm3 06/15/17 13:33 Lymphocytes # (Manual) 0.4 K/mm3 (1.2-5.4) L 06/15/17 13:33 Abs React Lymphs (Man) 0.0 K/mm3 06/15/17 13:33 Monocytes # (Manual) 0.1 K/mm3 (0.0-0.8) 06/15/17 13:33 Eosinophils # (Manual) 0.0 K/mm3 (0.0-0.4) 06/15/17 13:33 Basophils # (Manual) 0.1 K/mm3 (0.0-0.1) 06/15/17 13:33 Metamyelocytes # 0.0 K/mm3 06/15/17 13:33 Myelocytes # 0.0 K/mm3 06/15/17 13:33 Promyelocytes # 0.0 K/mm3 06/15/17 13:33 Blast Cells # 0.0 K/mm3 06/15/17 13:33 WBC Morphology Not Reportable 06/15/17 13:33 Hypersegmented Neuts Not Reportable 06/15/17 13:33 Hyposegmented Neuts Not Reportable 06/15/17 13:33 Hypogranular Neuts Not Reportable 06/15/17 13:33 Smudge Cells Not Reportable 06/15/17 13:33 Toxic Granulation Not Reportable 06/15/17 13:33 Toxic Vacuolation Few 06/15/17 13:33 Dohle Bodies Rare 06/15/17 13:33 Pelger-Huet Anomaly Not Reportable 06/15/17 13:33 Aditi Rods Not Reportable 06/15/17 13:33 Platelet Estimate Cons 06/15/17 13:33 Clumped Platelets Not Reportable 06/15/17 13:33 Plt Clumps, EDTA Not Reportable 06/15/17 13:33 Large Platelets Rare 06/15/17 13:33 Giant Platelets Not Reportable 06/15/17 13:33 Platelet Satelliting Not Reportable 06/15/17 13:33 Plt Morphology Comment Not Reportable 06/15/17 13:33 RBC Morphology Normal 06/15/17 13:33 Dimorphic RBCs Not Reportable 06/15/17 13:33 Polychromasia Not Reportable 06/15/17 13:33 Hypochromasia Not Reportable 06/15/17 13:33 Poikilocytosis Not Reportable 06/15/17 13:33 Anisocytosis Not Reportable 06/15/17 13:33 Microcytosis Not Reportable 06/15/17 13:33 Macrocytosis Not Reportable 06/15/17 13:33 Spherocytes Not Reportable 06/15/17 13:33 Pappenheimer Bodies Not Reportable 06/15/17 13:33 Sickle Cells Not Reportable 06/15/17 13:33 Target Cells Not Reportable 06/15/17 13:33 Tear Drop Cells Not Reportable 06/15/17 13:33 Ovalocytes Not Reportable 06/15/17 13:33 Helmet Cells Not Reportable 06/15/17 13:33 Guerre[place] Bodies Not Reportable 06/15/17 13:33 [place] Rings Not Reportable 06/15/17 13:33 Sonya Cells Not Reportable 06/15/17 13:33 Bite Cells Not Reportable 06/15/17 13:33 Crenated Cell Not Reportable 06/15/17 13:33 Elliptocytes Not Reportable 06/15/17 13:33 Acanthocytes (Spur) Not Reportable 06/15/17 13:33 Rouleaux Not Reportable 06/15/17 13:33 Hemoglobin C Crystals Not Reportable 06/15/17 13:33 Schistocytes Not Reportable 06/15/17 13:33 Malaria parasites Not Reportable 06/15/17 13:33 [place] Bodies Not Reportable 06/15/17 13:33 Hem Pathologist Commnt No 06/15/17 13:33 D-Dimer 2195.21 ng/mlDDU (0-234) H 06/15/17 00:09 POC ABG pH 7.409 (7.35-7.45) 06/14/17 22:18 POC ABG pCO2 26.4 (35-45) L 06/14/17 22:18 POC ABG pO2 224 (80-105) H 06/14/17 22:18 POC ABG HCO3 16.7 06/14/17 22:18 POC ABG Total CO2 17 06/14/17 22:18 POC ABG O2 Sat 100 06/14/17 22:18 POC ABG Base Excess -8 06/14/17 22:18 FiO2 100 % 06/14/17 22:18 Sodium 142 mmol/L (137-145) 06/16/17 10:20 Potassium 3.0 mmol/L (3.6-5.0) L 06/16/17 10:20 Chloride 107.3 mmol/L (98-107) H 06/16/17 10:20 Carbon Dioxide 17 mmol/L (22-30) L 06/16/17 10:20 Anion Gap 21 mmol/L 06/16/17 10:20 BUN 30 mg/dL (7-17) H 06/16/17 10:20 Creatinine 1.5 mg/dL (0.7-1.2) H 06/16/17 10:20 Estimated GFR 33 ml/min 06/16/17 10:20 BUN/Creatinine Ratio 20 % 06/16/17 10:20 Glucose 187 mg/dL (65-100) H 06/16/17 10:20 Lactic Acid 1.20 mmol/L (0.7-2.0) 06/14/17 18:41 Calcium 8.4 mg/dL (8.4-10.2) 06/16/17 10:20 Total Bilirubin 1.00 mg/dL (0.1-1.2) 06/14/17 16:39 Direct Bilirubin 0.6 mg/dL (0-0.2) H 06/14/17 16:39 Indirect Bilirubin 0.4 mg/dL 06/14/17 16:39 AST 30 units/L (5-40) 06/14/17 16:39 ALT 32 units/L (7-56) 06/14/17 16:39 Alkaline Phosphatase 142 units/L (35-129) H 06/14/17 16:39 Total Creatine Kinase 57 units/L (30-135) 06/15/17 09:44 CK-MB (CK-2) 1.5 ng/mL (0.0-4.0) 06/15/17 09:44 CK-MB (CK-2) Rel Index 2.6 (0-4) 06/15/17 09:44 Troponin T 0.013 ng/mL (0.00-0.029) 06/15/17 09:44 NT-Pro-B Natriuret Pep 1079 pg/mL (0-900) H 06/14/17 16:39 Total Protein 6.5 g/dL (6.3-8.2) 06/14/17 16:39 Albumin 3.0 g/dL (3.9-5) L 06/14/17 16:39 Albumin/Globulin Ratio 0.9 % 06/14/17 16:39 Lipase 18 units/L (13-60) 06/14/17 16:39 Urine Color Yellow (Yellow) 06/14/17 19:13 Urine Turbidity Clear (Clear) 06/14/17 19:13 Urine pH 6.0 (5.0-7.0) 06/14/17 19:13 Ur Specific [place] 1.003 (1.003-1.030) 06/14/17 19:13 Urine Protein 30 mg/dl mg/dL (Negative) 06/14/17 19:13 Urine Glucose (UA) Neg mg/dL (Negative) 06/14/17 19:13 Urine Ketones Tr mg/dL (Negative) 06/14/17 19:13 Urine Blood Mod (Negative) 06/14/17 19:13 Urine Nitrite Pos (Negative) 06/14/17 19:13 Urine Bilirubin Neg (Negative) 06/14/17 19:13 Urine Urobilinogen < 2.0 mg/dL (<2.0) 06/14/17 19:13 Ur Leukocyte Esterase Lg (Negative) 06/14/17 19:13 Urine WBC (Auto) 157.0 /HPF (0.0-6.0) H 06/14/17 19:13 Urine RBC (Auto) 14.0 /HPF (0.0-6.0) 06/14/17 19:13 U Epithel Cells (Auto) 7.0 /HPF (0-13.0) 06/14/17 19:13 Urine Bacteria (Auto) 3+ /HPF (Negative) 06/14/17 19:13 Urine WBC Clumps 3+ /HPF 06/14/17 19:13 Urine Mucus Few /HPF 06/14/17 19:13
[2017-06-16] MEDS ORDERED: K-DUR PO ONE (12:55)
[2017-06-16] MEDS: BENADRYL PO PRN ×2 (12:57→22:12)
[2017-06-16] MEDS ORDERED: NACL 0.9% 1000 ML 1,000 ML IV SCH (13:00)
[2017-06-16] MEDS: PRAVACHOL PO SCH (22:12)
[2017-06-17 05:55] LABS: INR 1.05 (0.87-1.13)
[2017-06-17 06:28] LABS: Calcium 8.5 mg/dL (8.4-10.2)
[2017-06-17] MEDS ORDERED: ASPIRIN PO ONE (08:00)
[2017-06-17] MEDS: LOVENOX SUB-Q SCH (10:00)
[2017-06-17] MEDS: COZAAR PO SCH (10:00)
[2017-06-17] MEDS: LASIX PO SCH (10:00)
--- NOTE | 2017-06-17 10:32 | Progress Note ---
Hospitalist Physical - Constitutional Vitals: Temp Pulse Resp BP Pulse Ox 97.7 F 55 L 16 116/77 95 06/17/17 09:27 06/17/17 09:27 06/17/17 09:27 06/17/17 09:27 06/17/17 09:27 General appearance: Present: mild distress, well-nourished, obese Results - Labs CBC & Chem 7: 06/15/17 13:33 06/17/17 05:25 Labs: Laboratory Last Values WBC 11.9 K/mm3 (4.5-11.0) H 06/15/17 13:33 RBC 4.86 M/mm3 (3.65-5.03) 06/15/17 13:33 Hgb 14.2 gm/dl (10.1-14.3) 06/15/17 13:33 Hct 42.2 % (30.3-42.9) 06/15/17 13:33 MCV 87 fl (79-97) 06/15/17 13:33 MCH 29 pg (28-32) 06/15/17 13:33 MCHC 34 % (30-34) 06/15/17 13:33 RDW 15.0 % (13.2-15.2) 06/15/17 13:33 Plt Count 155 K/mm3 (140-440) 06/15/17 13:33 Lymph % (Auto) 4.8 % (13.4-35.0) L 06/14/17 16:39 [place] % (Auto) 11.8 % (0.0-7.3) H 06/14/17 16:39 Eos % (Auto) 0.2 % (0.0-4.3) 06/14/17 16:39 Baso % (Auto) 0.3 % (0.0-1.8) 06/14/17 16:39 Lymph # 0.5 K/mm3 (1.2-5.4) L 06/14/17 16:39 [place] # 1.3 K/mm3 (0.0-0.8) H 06/14/17 16:39 Eos # 0.0 K/mm3 (0.0-0.4) 06/14/17 16:39 Baso # 0.0 K/mm3 (0.0-0.1) 06/14/17 16:39 Add Manual Diff Complete 06/15/17 13:33 Total Counted 100 06/15/17 13:33 Seg Neutrophils % 82.9 % (40.0-70.0) H 06/14/17 16:39 Seg Neuts % (Manual) 95.0 % (40.0-70.0) H 06/15/17 13:33 Band Neutrophils % 0 % 06/15/17 13:33 Lymphocytes % (Manual) 3.0 % (13.4-35.0) L 06/15/17 13:33 Reactive Lymphs % (Man) 0 % 06/15/17 13:33 Monocytes % (Manual) 1.0 % (0.0-7.3) 06/15/17 13:33 Eosinophils % (Manual) 0 % (0.0-4.3) 06/15/17 13:33 Basophils % (Manual) 1.0 % (0.0-1.8) 06/15/17 13:33 Metamyelocytes % 0 % 06/15/17 13:33 Myelocytes % 0 % 06/15/17 13:33 Promyelocytes % 0 % 06/15/17 13:33 Blast Cells % 0 % 06/15/17 13:33 Nucleated RBC % Not Reportable 06/15/17 13:33 Seg Neutrophils # 8.8 K/mm3 (1.8-7.7) H 06/14/17 16:39 Seg Neutrophils # Man 11.3 K/mm3 (1.8-7.7) H 06/15/17 13:33 Band Neutrophils # 0.0 K/mm3 06/15/17 13:33 Lymphocytes # (Manual) 0.4 K/mm3 (1.2-5.4) L 06/15/17 13:33 Abs React Lymphs (Man) 0.0 K/mm3 06/15/17 13:33 Monocytes # (Manual) 0.1 K/mm3 (0.0-0.8) 06/15/17 13:33 Eosinophils # (Manual) 0.0 K/mm3 (0.0-0.4) 06/15/17 13:33 Basophils # (Manual) 0.1 K/mm3 (0.0-0.1) 06/15/17 13:33 Metamyelocytes # 0.0 K/mm3 06/15/17 13:33 Myelocytes # 0.0 K/mm3 06/15/17 13:33 Promyelocytes # 0.0 K/mm3 06/15/17 13:33 Blast Cells # 0.0 K/mm3 06/15/17 13:33 WBC Morphology Not Reportable 06/15/17 13:33 Hypersegmented Neuts Not Reportable 06/15/17 13:33 Hyposegmented Neuts Not Reportable 06/15/17 13:33 Hypogranular Neuts Not Reportable 06/15/17 13:33 Smudge Cells Not Reportable 06/15/17 13:33 Toxic Granulation Not Reportable 06/15/17 13:33 Toxic Vacuolation Few 06/15/17 13:33 Dohle Bodies Rare 06/15/17 13:33 Pelger-Huet Anomaly Not Reportable 06/15/17 13:33 Aditi Rods Not Reportable 06/15/17 13:33 Platelet Estimate Cons 06/15/17 13:33 Clumped Platelets Not Reportable 06/15/17 13:33 Plt Clumps, EDTA Not Reportable 06/15/17 13:33 Large Platelets Rare 06/15/17 13:33 Giant Platelets Not Reportable 06/15/17 13:33 Platelet Satelliting Not Reportable 06/15/17 13:33 Plt Morphology Comment Not Reportable 06/15/17 13:33 RBC Morphology Normal 06/15/17 13:33 Dimorphic RBCs Not Reportable 06/15/17 13:33 Polychromasia Not Reportable 06/15/17 13:33 Hypochromasia Not Reportable 06/15/17 13:33 Poikilocytosis Not Reportable 06/15/17 13:33 Anisocytosis Not Reportable 06/15/17 13:33 Microcytosis Not Reportable 06/15/17 13:33 Macrocytosis Not Reportable 06/15/17 13:33 Spherocytes Not Reportable 06/15/17 13:33 Pappenheimer Bodies Not Reportable 06/15/17 13:33 Sickle Cells Not Reportable 06/15/17 13:33 Target Cells Not Reportable 06/15/17 13:33 Tear Drop Cells Not Reportable 06/15/17 13:33 Ovalocytes Not Reportable 06/15/17 13:33 Helmet Cells Not Reportable 06/15/17 13:33 [place] Bodies Not Reportable 06/15/17 13:33 [place] Rings Not Reportable 06/15/17 13:33 Sonya Cells Not Reportable 06/15/17 13:33 Bite Cells Not Reportable 06/15/17 13:33 Crenated Cell Not Reportable 06/15/17 13:33 Elliptocytes Not Reportable 06/15/17 13:33 Acanthocytes (Spur) Not Reportable 06/15/17 13:33 Rouleaux Not Reportable 06/15/17 13:33 Hemoglobin C Crystals Not Reportable 06/15/17 13:33 Schistocytes Not Reportable 06/15/17 13:33 Malaria parasites Not Reportable 06/15/17 13:33 Howard Bodies Not Reportable 06/15/17 13:33 Hem Pathologist Commnt No 06/15/17 13:33 PT 14.2 Sec. (12.2-14.9) 06/17/17 05:25 INR 1.05 (0.87-1.13) 06/17/17 05:25 D-Dimer 2195.21 ng/mlDDU (0-234) H 06/15/17 00:09 POC ABG pH 7.409 (7.35-7.45) 06/14/17 22:18 POC ABG pCO2 26.4 (35-45) L 06/14/17 22:18 POC ABG pO2 224 (80-105) H 06/14/17 22:18 POC ABG HCO3 16.7 06/14/17 22:18 POC ABG Total CO2 17 06/14/17 22:18 POC ABG O2 Sat 100 06/14/17 22:18 POC ABG Base Excess -8 06/14/17 22:18 FiO2 100 % 06/14/17 22:18 Sodium 141 mmol/L (137-145) 06/17/17 05:25 Potassium 3.6 mmol/L (3.6-5.0) 06/17/17 05:25 Chloride 106.7 mmol/L (98-107) 06/17/17 05:25 Carbon Dioxide 20 mmol/L (22-30) L 06/17/17 05:25 Anion Gap 18 mmol/L 06/17/17 05:25 BUN 33 mg/dL (7-17) H 06/17/17 05:25 Creatinine 1.3 mg/dL (0.7-1.2) H 06/17/17 05:25 Estimated GFR 39 ml/min 06/17/17 05:25 BUN/Creatinine Ratio 25 % 06/17/17 05:25 Glucose 231 mg/dL (65-100) H 06/17/17 05:25 POC Glucose 210 (70-105) H 06/17/17 06:53 Lactic Acid 1.20 mmol/L (0.7-2.0) 06/14/17 18:41 Calcium 8.5 mg/dL (8.4-10.2) 06/17/17 05:25 Total Bilirubin 1.00 mg/dL (0.1-1.2) 06/14/17 16:39 Direct Bilirubin 0.6 mg/dL (0-0.2) H 06/14/17 16:39 Indirect Bilirubin 0.4 mg/dL 06/14/17 16:39 AST 30 units/L (5-40) 06/14/17 16:39 ALT 32 units/L (7-56) 06/14/17 16:39 Alkaline Phosphatase 142 units/L (35-129) H 06/14/17 16:39 Total Creatine Kinase 57 units/L (30-135) 06/15/17 09:44 CK-MB (CK-2) 1.5 ng/mL (0.0-4.0) 06/15/17 09:44 CK-MB (CK-2) Rel Index 2.6 (0-4) 06/15/17 09:44 Troponin T 0.013 ng/mL (0.00-0.029) 06/15/17 09:44 NT-Pro-B Natriuret Pep 1079 pg/mL (0-900) H 06/14/17 16:39 Total Protein 6.5 g/dL (6.3-8.2) 06/14/17 16:39 Albumin 3.0 g/dL (3.9-5) L 06/14/17 16:39 Albumin/Globulin Ratio 0.9 % 06/14/17 16:39 Lipase 18 units/L (13-60) 06/14/17 16:39 Urine Color Yellow (Yellow) 06/14/17 19:13 Urine Turbidity Clear (Clear) 06/14/17 19:13 Urine pH 6.0 (5.0-7.0) 06/14/17 19:13 Ur Specific [place] 1.003 (1.003-1.030) 06/14/17 19:13 Urine Protein 30 mg/dl mg/dL (Negative) 06/14/17 19:13 Urine Glucose (UA) Neg mg/dL (Negative) 06/14/17 19:13 Urine Ketones Tr mg/dL (Negative) 06/14/17 19:13 Urine Blood Mod (Negative) 06/14/17 19:13 Urine Nitrite Pos (Negative) 06/14/17 19:13 Urine Bilirubin Neg (Negative) 06/14/17 19:13 Urine Urobilinogen < 2.0 mg/dL (<2.0) 06/14/17 19:13 Ur Leukocyte Esterase Lg (Negative) 06/14/17 19:13 Urine WBC (Auto) 157.0 /HPF (0.0-6.0) H 06/14/17 19:13 Urine RBC (Auto) 14.0 /HPF (0.0-6.0) 06/14/17 19:13 U Epithel Cells (Auto) 7.0 /HPF (0-13.0) 06/14/17 19:13 Urine Bacteria (Auto) 3+ /HPF (Negative) 06/14/17 19:13 Urine WBC Clumps 3+ /HPF 06/14/17 19:13 Urine Mucus Few /HPF 06/14/17 19:13
[2017-06-17] MEDS ORDERED: CALAN ONE (10:55)
[2017-06-17] MEDS ORDERED: HEPARIN 10,000 UNITS/10 ML ONE (10:55)
[2017-06-17] MEDS ORDERED: HEPARIN/NS 5000 UNIT/500ML(CATH LAB) 1,000 ML IR ONE (10:55)
[2017-06-17] MEDS ORDERED: NITROGLYCERIN SYRINGE 0 ML ONE (10:56)
[2017-06-17] MEDS ORDERED: SUBLIMAZE ONE (10:56)
[2017-06-17] MEDS ORDERED: XYLOCAINE 2% INFILTRATI ONE (10:56)
[2017-06-17] MEDS ORDERED: VERSED ONE (10:56)
[2017-06-17] MEDS ORDERED: COREG PO SCH ×2 (12:15→13:00)
--- NOTE | 2017-06-17 12:15 | Progress Note ---
Assessment and Plan Syncope likely secondary to dehydration and hypotension Acute renal failure - resolved Chronic worsening shortness of breath Normal LVEF by echo 04/2017 Normal coronaries Mildly elevated left and right sided filling pressures Mild PH, PVR < 3, normal CO GERD Patient has chronic retrosternal chest pain that she attributes to GERD ECG is showing no ischemic findings. Troponin are negative and BNP mildly elevated in the setting of renal failure Recommendations: Continue current management No further cardiac work-up is needed 35 ml of contrast used during procedure Subjective Date of service: 06/17/17 Principal diagnosis: Syncope Interval history: Patient underwent a LHC and RHC without complications Objective Vital Signs Temp Pulse Pulse Resp Resp BP BP 06/17/17 09:27 97.7 F 55 L 16 116/77 06/17/17 05:11 54 L 06/17/17 05:10 98.1 F 70 20 136/75 06/17/17 02:28 60 18 06/17/17 00:29 97.5 F L 58 L 18 06/16/17 22:11 59 L 123/69 06/16/17 22:00 18 06/16/17 19:30 98.8 F 59 L 18 06/16/17 17:53 98.6 F 18 137/82 06/16/17 12:17 97.9 F 69 18 112/64 BP Pulse Ox 06/17/17 09:27 95 06/17/17 05:11 94 06/17/17 05:10 95 06/17/17 02:28 06/17/17 00:29 131/69 91 06/16/17 22:11 06/16/17 22:00 06/16/17 19:30 123/69 94 06/16/17 17:53 06/16/17 12:17 96 - Physical Examination General: No Apparent Distress HEENT: Positive: PERRL Neck: Positive: neck supple Cardiac: Positive: Reg Rate and Rhythm Lungs: Positive: Rales Neuro: Positive: Grossly Intact Extremities: Absent: edema - Labs and Meds Coagulation 06/17/17 Range/Units 05:25 PT 14.2 (12.2-14.9) Sec. INR 1.05 (0.87-1.13) Comprehensive Metabolic Panel 06/17/17 Range/Units 05:25 Sodium 141 (137-145) mmol/L Potassium 3.6 (3.6-5.0) mmol/L Chloride 106.7 (98-107) mmol/L Carbon Dioxide 20 L (22-30) mmol/L BUN 33 H (7-17) mg/dL Creatinine 1.3 H (0.7-1.2) mg/dL Glucose 231 H (65-100) mg/dL Calcium 8.5 (8.4-10.2) mg/dL - Imaging and Cardiology EKG: image reviewed
[2017-06-17] MEDS ORDERED: LASIX IV ONE (12:48)
--- NOTE | 2017-06-17 14:34 | Discharge Summary ---
Providers - Providers Date of Admission: 06/14/17 22:45 Date of discharge: 06/17/17 Attending physician: KATELYNN LIU 06/14/17 22:45 Consult to Physician [CONS] Routine Comment: spoke to Haja @ 09:18- [facility] Consulting Provider: ROBERTO HERNANDEZ Physician Instructions: Reason For Exam: sob 06/15/17 03:18 Consult to Physician [CONS] Routine Comment: spoke to Haja @ 09:18- [facility] Consulting Provider: ROBERTO HERNANDEZ Physician Instructions: Reason For Exam: chf 06/17/17 12:15 Consult to Cardiac Rehabilitation [CONS] Routine Reason For Exam: Cardiac Rehab Evaluation Hospitalization Reason for admission: worsening shortness of breath, dizziness and near-syncope Condition: Serious Hospital course: --Atypical chronic chest pain; probably noncardiac, however patient never had cardiac workup Cardiology following, planning ischemia workup once a function improves Possible heart cath tomorrow --Allergic rash; unknown etiology No shortness of breath, mild redness on the skin and itching IV Solu-Medrol, Benadryl as needed, and local cream DC albuterol --Syncope; probably secondary to autonomic imbalance, dehydration Fall precautions, IV fluids, syncope workup --Acute kidney injury; vasomotor nephropathy, gentle hydration, closely monitor renal function Avoid nephrotoxic medication, consider nephrology evaluation as needed, --Elevated d-dimers VQ scan neg for PE,Check Lower extremity venous doppler to rule out DVT --Gastroesophageal reflux disease; continue Protonix Disposition: DC/[place]-06 HOME UNDER HOME [facility] Time spent for discharge: 31 min Core Measure Documentation - Palliative Care Palliative Care/ Comfort Measures: Not Applicable - Core Measures Any of the following diagnoses?: none Exam - Constitutional Vitals: Temp Pulse Resp BP Pulse Ox 97.4 F L 48 L 15 110/66 96 06/17/17 12:05 06/17/17 12:49 06/17/17 12:05 06/17/17 12:05 06/17/17 12:05 General appearance: Present: no acute distress, well-nourished - EENT Eyes: Present: PERRL, EOM intact - Neck Neck: Present: supple, normal ROM - Respiratory Respiratory effort: normal Respiratory: bilateral: wheezing (scanty), negative: rales, rhonchi - Cardiovascular Rhythm: regular Heart Sounds: Present: S1 & S2 - Extremities Extremities: no ischemia, No edema Peripheral Pulses: within normal limits - Abdominal General gastrointestinal: Present: soft, non-tender, non-distended, normal bowel sounds - Integumentary Integumentary: Present: clear, warm - Musculoskeletal Musculoskeletal: strength equal bilaterally, generalized weakness - Psychiatric Psychiatric: appropriate mood/affect, cooperative - Neurologic Neurologic: CNII-XII intact, moves all extremities Plan Activity: advance as tolerated, fall precautions Diet: other (cardiac diet) Special Instructions: physical therapy Additional Instructions: Follow-up private cmo & president in 3-4 days Follow up with: MIRANDA ELISE [Other] - 3-5 Days ROBLES MUELLER MD [Staff Physician] - 7 Days SCARLET SCHILLING MD [Staff Physician] - 7 Days
[2017-06-17 16:55] VITALS: BP 140/84
--- NOTE | 2017-06-18 09:35 | Cardiac Catherization Report ---
ORDERING PHYSICIAN: Jay Richardson MD. INDICATION: Chronic chest pain and shortness of breath, syncope. PROCEDURES PERFORMED: 1. Selective left and right coronary angiography. 2. Right heart catheterization with hemodynamic measurement and oxygen saturation run. 3. Left ventriculography was not performed due to underlying renal insufficiency. 4. Closure of the right femoral artery punctured with a 5-Gambian Mynx device. DESCRIPTION OF PROCEDURE: 1. After obtaining the consent, the patient was draped using sterile technique. A 2% lidocaine was injected into the right groin. Using micropuncture technique, a 5-Gambian vascular sheath was inserted into the right common femoral artery. Using micropuncture technique, an 8-Gambian vascular sheath was inserted into the right common femoral vein. 2. 5. JL4 catheter was used to selectively engage left coronary artery. 3. A JR4 catheter was used to selectively engage right coronary artery. 4. A 7.5 Mccalla-Parviz catheter was used to measure right-sided hemodynamics and perform oxygen saturation run. No complications occurred during the procedure. Hemostasis was achieved at the end of the procedure using manual pressure. SPECIMEN REMOVED: None. ESTIMATED BLOOD LOSS: Minimal. Physician and the patient [id number] sedation start time is 11:50 a.m. Physician and the patient [id number] stop time is 11:53 a.m. Total sedation time 23 minutes. FINDINGS: HEMODYNAMICS: 1. Mean pulmonary capillary wedge pressure 22 mmHg. 2. The mean pulmonary artery pressure 32 mmHg. 3. Pulmonary artery systolic pressure 53 mmHg. 4. Pulmonary artery diastolic pressure 12 mmHg. 5. Right ventricular systolic pressure is 50 mmHg. 6. Right ventricular end diastolic pressure is 17 mmHg. 7. Mean right atrial pressure is 70 mmHg. 8. Aortic pressure is 133/70. 9. No gradient was noted across left ventricular outflow tract. Left ventricular end-diastolic pressure was measured at 28 mmHg. 10. Pulmonary artery saturation 60%. 11. Right ventricular saturation 61%. 12. Right atrial saturation is 63%. 13. Aortic saturation 92%. 14. Cardiac output 4.3 liters per minute. 15. Cardiac index 2.38 liters per minute per meter square. CARDIAC STRUCTURES: Left ventriculogram was not performed due to underlying renal insufficiency. CORONARY ANATOMY: 1. This is a right dominant circulation. 2. Left main is angiographically normal. 3. The LAD is angiographically normal. 4. Ramus intermedius angiographically normal. 5. Left circumflex artery is angiographically normal. 6. Right coronary artery is angiographically normal. IMPRESSION: 1. Angiographically normal coronary circulation. 2. Mildly elevated left and right-sided filling pressures. 3. Mild pulmonary hypertension with a pulmonary vascular resistance less than 3 Mccall units. 4. Normal cardiac output. 5. No evidence of intracardiac shunt. RECOMMENDATIONS: 1. Continue current management. Follow up in the office. 2. Correlate with 2D echocardiogram. JOB# [id number] CHELSIE/BONY
== END 2017-06-17 17:00 | disposition home health service (06) | DRG 286 ==
LOC: ED 16:17 → 4A 22:45
PROVIDERS: ADMIT Internal Medicine; ATTEND Internal Medicine
PROC: 4A033R1 Measurement of Arterial Saturation, Peripheral, Percutaneous Approach (ICD-10-PCS; principal; 2017-06-15)
PROC: 3E0234Z Introduction of Serum, Toxoid and Vaccine into Muscle, Percutaneous Approach (ICD-10-PCS; 2017-06-15)
PROC: 4A023N8 Measurement of Cardiac Sampling and Pressure, Bilateral, Percutaneous Approach (ICD-10-PCS; 2017-06-17)
PROC: B2111ZZ Fluoroscopy of Multiple Coronary Arteries using Low Osmolar Contrast (ICD-10-PCS; 2017-06-17)
DX: R07.89 Other chest pain (principal); N17.0 Acute kidney failure with tubular necrosis; N39.0 Urinary tract infection, site not specified; K21.9 Gastro-esophageal reflux disease without esophagitis; F45.8 Other somatoform disorders; E78.00 Pure hypercholesterolemia, unspecified; Z96.652 Presence of left artificial knee joint; E86.0 Dehydration; G90.8 Other disorders of autonomic nervous system; I50.9 Heart failure, unspecified; I11.0 Hypertensive heart disease with heart failure; E78.5 Hyperlipidemia, unspecified; Z82.49 Family history of ischemic heart disease and other diseases of the circulatory system; Z86.73 Personal history of transient ischemic attack (TIA), and cerebral infarction without residual deficits; Z23 Encounter for immunization
CPT/HCPCS: 36415; 78582; 80048; 80074; 81001; 82140; 82550; 82553; 82803; 82962; 83690; 83880; 84484; 85007; 85025; 85379; 85610; 90732; 93005; 93010; 93460; 93970; 94640; 94760; A9270-GY; A9540; A9558; C1760; J0696; J1644; J1650; J1940; J1956; J2250; J2920; J3010; J7030; Q9967